=== PATIENT | female | born 1990 | race Hispanic/Latino ===

== ENCOUNTER 2018-08-14 22:11 | Emergency (ER) | payer BC ==
[2018-08-14 22:37] VITALS: O2SAT 99
--- NOTE | 2018-08-15 01:24 | ED PDOC ---
HPI: Influenza Time Seen by Provider: 08/14/18 23:48 Chief Complaint: Cough, Cold, Congestion Chief Complaint (Provider): persistent cough and fever History Per: Patient Exam Limitations: no limitations Have you had recent travel within the past 21 days to any of: No Onset/Duration Of Symptoms: Days (4) Symptoms include: fever, cough, nasal congestion, chest pain, difficulty breathing Hx Influenza Vaccination: No Additional complaint(s):: 28 y/o F with no PMH who presents with persistent cough and fever x 3 days. Sean hall states that she began coughing about 3 days ago, productive of whitish/yellow sputum. She has had bronchitis every year for the past 8 years so saw her PMD 2 days ago who prescribed her antibiotics. She has been taking them for the past 2 days but feels like her cough has become worse. She also developed a fever 2 days ago. Denies flu shot this season or sick contacts. No recent travel. Denies chills, night sweats, N/V, diarrhea, sore throat. Admits to having chest pain and SOB during coughing fits but not otherwise. Past Medical History Reviewed: Historical Data, Nursing Documentation, Vital Signs Vital Signs: Last Vital Signs Temp 99.6 F 08/14/18 22:34 Pulse 105 H 08/14/18 22:34 Resp 20 08/14/18 22:34 BP 131/83 08/14/18 22:34 Pulse Ox 99 08/14/18 22:34 - Medical History PMH: No Chronic Diseases - Family History Family History: States: Unknown Family Hx - Home Medications Home Medications: Ambulatory Orders Medication Instructions Recorded Acetaminophen [Tylenol 325mg tab] 650 mg PO Q6 PRN 7 Days tab 08/15/18 RX: Ibuprofen [Motrin Tab] 600 mg PO Q6 PRN 7 Days tab 08/15/18 - Allergies Allergies/Adverse Reactions: Allergies Allergy/AdvReac Type Severity Reaction Status Date / Time Penicillins Allergy ANAPHYLAXIS Verified 08/15/18 01:24 Sulfa (Sulfonamide Allergy ANAPHYLAXIS Verified 08/15/18 01:24 Antibiotics) Physical Exam - Reviewed Nursing Documentation Reviewed: Yes Vital Signs Reviewed: Yes - Physical Exam Appears: Positive for: Uncomfortable Head Exam: Positive for: ATRAUMATIC Skin: Positive for: Normal Color Eye Exam: Positive for: Normal appearance ENT: Positive for: TM Is/Are (normal), Pharyngeal Erythema (mild). Negative for: Sinus Pain/Drainage, Tonsillar Exudate, Tonsillar Swelling Neck: Positive for: Normal, Supple Cardiovascular/Chest: Positive for: Regular Rate, Rhythm Respiratory: Positive for: Normal Breath Sounds Gastrointestinal/Abdominal: Positive for: Normal Exam Lymphatic: Positive for: Normal Exam Neurologic/Psych: Positive for: Alert, Oriented Medical Decision Making Medical Decision Making: Rapid flu CXR PA and lateral Joe DM Influenza A + CXR by my read: no acute pulmonary disease Patient informed about Influenza + but symptoms began 3 days ago so Tamiflu not indicated at this time. She was advised to avoid going to work until her fevers subside and cough improves (at least 2 - 3 days). Further advised to inform close contacts to have themselves evaluated for the flu if they start to have cough/fevers as soon as possible. - ECG O2 Sat by Pulse Oximetry: 99 Disposition - Clinical Impression Clinical Impression: Influenza A - Patient ED Disposition Is Patient to be Admitted: No Counseled Patient/Family Regarding: Studies Performed, Diagnosis - Disposition Disposition: Routine/Home Disposition Time: 03:02 Condition: STABLE Additional Instructions: F/u with your primary care doctor if you continue to have fevers past 3 days for updated work note. Avoid close contact with others while you still have a fever and are actively coughing. Return to ER if you develop worsening shortness of breath or cough. Can use Robitussin or over the counter cough medication for cough. Complete course of antibiotics as prescribed by your PMD. Prescriptions: Acetaminophen [Tylenol 325mg tab] 650 mg PO Q6 PRN 7 Days tab PRN Reason: Fever >100.4 F RX: Ibuprofen [Motrin Tab] 600 mg PO Q6 PRN 7 Days tab PRN Reason: Fever >100.4 F Instructions: Flu, Adult (DC) Forms: [employer] (O[place]i), [facility] ED School/Work Excuse Print Language: MARSHALLESE
[2018-08-15] MEDS: guaiFENesin DM 200 mg-20 mg/10 ml UD PO STA (01:25)
[2018-08-15 02:36] VITALS: BP 127/74; PULSE 95; RESP 17; TEMP 99.5
--- NOTE | 2018-08-15 07:56 | RAD ---
Date of service: 08/15/2018 HISTORY: shortness of breath, cough COMPARISON: No prior. TECHNIQUE: Chest PA and lateral FINDINGS: LUNGS: No active pulmonary disease. PLEURA: No significant pleural effusion identified. No pneumothorax apparent. CARDIOVASCULAR: No aortic atherosclerotic calcification present. Normal cardiac size. No pulmonary vascular congestion. OSSEOUS STRUCTURES: No significant abnormalities. VISUALIZED UPPER ABDOMEN: Normal. OTHER FINDINGS: None. IMPRESSION: No active disease.
== END 2018-08-15 03:02 | disposition home or self-care (01) ==
LOC: H.ER 22:11
DX: J09.X2 Influenza due to identified novel influenza A virus with other respiratory manifestations (principal); Z88.0 Allergy status to penicillin